=== PATIENT | male | born 1985 | race Caucasian/White ===

== ENCOUNTER → 2017-12-05 14:54 | Outpatient (CLI) | payer BC, SELFPAY ==
[2017-12-09 03:07] LABS: Comment 2b (.); HCV Quant. RNA PCR See Final Results IU/mL (.)
[2017-12-09 11:06] LABS: HCV log 10 7.152 (.); HEPATITIS B SURFACE AG Negative (Negative); Hepatitis C Genotype 2b
== END ==
PROVIDERS: Family Provider Family Medicine; PCP Family Medicine; Visit Provider Internal Medicine Gastroenterology
DX: B19.20 Unspecified viral hepatitis C without hepatic coma (principal)
CPT/HCPCS: 36415; 87340; 87522; 87902

== ENCOUNTER 2017-12-25 04:44 | Emergency (ER) | payer BC, SELFPAY ==
[2017-12-25 04:45] VITALS: BP 173/80; PULSE 111; RESP 22; TEMP 36.8; O2SAT 100; BMI 27.4
--- NOTE | 2017-12-25 05:14 | ED.VISSUMM ---
- ER Visit Summary Date of Service: 12/25/17 Chief Complaint: Laceration left thumb History of Present Illness: The patient is a 32 M presenting with laceration to his left thumb. Patient was cutting wood with a knife and the knife slipped and cut his left thumb. He is right-handed. He rinsed it out at home. His tetanus is up-to-date. No other injuries. Physical Examination: Vitals are stable. Patient is afebrile. Alert no acute distress. HEENT exam is unremarkable. Lungs are clear and equal bilaterally. Heart is regular rate and rhythm. Extremities 3 cm left thumb flap laceration, tendon function is intact, normal cap refill Skin is warm and dry. No focal neurologic deficit. Remainder of exam is unremarkable. Emergency Department Course and Treatment: Laceration was repaired under sterile conditions. Irrigated with saline. Anesthetized with lidocaine. 4, 5-0 simple sutures were placed. Patient tolerated this well. Advised wound care instructions. Advised to return to ED for worsening complaints. Disposition: Discharge home Impression: Left thumb laceration, laceration repair This note was generated with [employer] dictation software. It may contain incorrect words, spelling, and punctuation that were not noted in review of the chart prior to signing ED Disposition - Plan for ED Patient: Chief Complaint: Laceration Instructions: ED Laceration Hand Referrals: Ron Smith MD [Primary Care Provider] -
--- NOTE | 2017-12-25 05:17 | ED.DCSUM_ITS ---
- ER Visit Summary Date of Service: 12/25/17 Chief Complaint: Laceration left thumb History of Present Illness: The patient is a 32 M presenting with laceration to his left thumb. Patient was cutting wood with a knife and the knife slipped and cut his left thumb. He is right-handed. He rinsed it out at home. His tetanus is up-to-date. No other injuries. Physical Examination: Vitals are stable. Patient is afebrile. Alert no acute distress. HEENT exam is unremarkable. Lungs are clear and equal bilaterally. Heart is regular rate and rhythm. Extremities 3 cm left thumb flap laceration, tendon function is intact, normal cap refill Skin is warm and dry. No focal neurologic deficit. Remainder of exam is unremarkable. Emergency Department Course and Treatment: Laceration was repaired under sterile conditions. Irrigated with saline. Anesthetized with lidocaine. 4, 5- 0 simple sutures were placed. Patient tolerated this well. Advised wound care instructions. Advised to return to ED for worsening complaints. Disposition: Discharge home Impression: Left thumb laceration, laceration repair This note was generated with [employer] dictation software. It may contain incorrect words, spelling, and punctuation that were not noted in review of the chart prior to signing ED Disposition - Plan for ED Patient: Chief Complaint: Laceration Instructions: ED Laceration Hand Referrals: Ron Smith MD [Primary Care Provider] -
--- NOTE | 2017-12-25 05:58 | ED.DEP ---
ED Disposition - Plan for ED Patient: Chief Complaint: Laceration Instructions: ED Laceration Hand Referrals: Ron Smith MD [Primary Care Provider] -
[2017-12-25 06:11] VITALS: RESP 18
== END 2017-12-25 06:12 | disposition home or self-care (01) ==
PROVIDERS: Emergency Provider Emergency Medicine; Family Provider Family Medicine; PCP Family Medicine
DX: S61.012A Laceration without foreign body of left thumb without damage to nail, initial encounter (principal); W26.0XXA Contact with knife, initial encounter; Y93.9 Activity, unspecified; Y92.9 Unspecified place or not applicable; K50.90 Crohn's disease, unspecified, without complications; Z72.0 Tobacco use
CPT/HCPCS: 12002; 99284

== ENCOUNTER 2018-03-11 21:19 | Emergency (ER) | payer BC, SELFPAY ==
[2018-03-11 21:20] VITALS: BP 149/91; PULSE 93; RESP 14; TEMP 36.6; O2SAT 99; BMI 27.5
--- NOTE | 2018-03-11 23:00 | ED.VISSUMM ---
- ER Visit Summary Date of Service: 03/11/18 Chief Complaint: [Laceration left ring finger] History of Present Illness: The patient is a 32 M [presents the emergency department with complaint of a laceration to his left ring finger that occurred this evening while he was pruning some bushes. Patient states that he accidentally cut his left ring finger with pruning darian. Patient is right-hand dominant.] Physical Examination: [Left ring finger-there is a flap laceration measuring approximately 1 cm in diameter to the distal tip of the digit. No nail involvement noted. Patient neurovascular intact. Initially patient had a small amount of skin holding the flap in the place but the flap is white and appears devascularized.] Test Results: [None indicated] Emergency Department Course and Treatment: [Patient had a digital block performed using 1% lidocaine total 6 cc. Wound cleansed with Shur-Clens and irrigated with saline. The flap is devascularized and was only hanging out by a fine thread of epidermis therefore the flap was removed. As we were washing the wound he started to bleed and we used Gelfoam to obtain good hemostasis and a clean dressing was applied.] Treatment Plan: [Patient follow-up with his primary care physician within next 3-5 days for wound check] Disposition: [Discharged home in stable condition] Impression: [Skin avulsion distal tip of left ring finger] This note was generated with [employer] dictation software. It may contain incorrect words, spelling, and punctuation that were not noted in review of the chart prior to signing ED Disposition - Plan for ED Patient: Chief Complaint: Laceration Referrals: Ron Smith MD [Primary Care Provider] -
--- NOTE | 2018-03-11 23:03 | ED.DCSUM_ITS ---
- ER Visit Summary Date of Service: 03/11/18 Chief Complaint: [Laceration left ring finger] History of Present Illness: The patient is a 32 M [presents the emergency department with complaint of a laceration to his left ring finger that occurred this evening while he was pruning some bushes. Patient states that he accidentally cut his left ring finger with pruning darian. Patient is right- hand dominant.] Physical Examination: [Left ring finger-there is a flap laceration measuring approximately 1 cm in diameter to the distal tip of the digit. No nail involvement noted. Patient neurovascular intact. Initially patient had a small amount of skin holding the flap in the place but the flap is white and appears devascularized.] Test Results: [None indicated] Emergency Department Course and Treatment: [Patient had a digital block performed using 1% lidocaine total 6 cc. Wound cleansed with Shur-Clens and irrigated with saline. The flap is devascularized and was only hanging out by a fine thread of epidermis therefore the flap was removed. As we were washing the wound he started to bleed and we used Gelfoam to obtain good hemostasis and a clean dressing was applied.] Treatment Plan: [Patient follow-up with his primary care physician within next 3 -5 days for wound check] Disposition: [Discharged home in stable condition] Impression: [Skin avulsion distal tip of left ring finger] This note was generated with [employer] dictation software. It may contain incorrect words, spelling, and punctuation that were not noted in review of the chart prior to signing ED Disposition - Plan for ED Patient: Chief Complaint: Laceration Referrals: Ron Smith MD [Primary Care Provider] -
--- NOTE | 2018-03-11 23:03 | ED.DEP ---
ED Disposition - Plan for ED Patient: Chief Complaint: Laceration Instructions: ED Avulsion Dermal Referrals: Ron Smith MD [Primary Care Provider] - 3-5 Days
[2018-03-11 23:16] VITALS: BP 140/60; PULSE 75; RESP 16; O2SAT 96
== END 2018-03-11 23:17 | disposition home or self-care (01) ==
LOC: ED 21:47
PROVIDERS: Emergency Provider Emergency Medicine; Family Provider Family Medicine; PCP Family Medicine
DX: S61.215A Laceration without foreign body of left ring finger without damage to nail, initial encounter (principal); W26.8XXA Contact with other sharp object(s), not elsewhere classified, initial encounter; Y93.9 Activity, unspecified; Y92.9 Unspecified place or not applicable; K50.90 Crohn's disease, unspecified, without complications; Z86.19 Personal history of other infectious and parasitic diseases; Z72.0 Tobacco use
CPT/HCPCS: 99284

== ENCOUNTER 2018-03-19 12:21 | Emergency (ER) | payer BC, SELFPAY ==
[2018-03-19 12:22] VITALS: BP 138/59; PULSE 79; RESP 18; TEMP 36.4; O2SAT 99; BMI 27.5
--- NOTE | 2018-03-19 12:46 | ED.VISSUMM ---
- ER Visit Summary Date of Service: 03/19/18 Chief Complaint: [] Rectal pain for 1 week history of Crohn's disease stable History of Present Illness: The patient is a 32 M [] of Crohn's disease and recent has been stable he indicates had rectal pain for unspecified reasons for about a week he is using avoid ointments with minimal improvement he is able to have normal bowel movements no blood no nausea vomiting fever no abdominal pain his Crohn's has been stable he sees Dr. Hobbs but he is on no medications as he has been stable Physical Examination: [] His vital signs are within normal limits head neck chest abdomen unremarkable nontender the rectal exam shows no obvious mass or lesion or abnormality he complains of pain right at the anal verge, again there is no fullness there is no bleeding there is no masses here his stool is soft and brown the external rectal area is unremarkable no signs of hemorrhoids his area is unremarkable otherwise In all the above to this patient at this time we did apply lidocaine Via [employer] to the rectum with some relief of his discomfort of explained to him the exact etiology unclear it could be manifestation of the Crohn's he will continue to use the hemorrhoid ointment and a follow-up with his certified substance abuse counselor in the next few days and return for change in symptoms Test Results: [] Emergency Department Course and Treatment: [] Treatment Plan: [] Disposition: [] Home stable Impression: [] Rectal pain history of Crohn's disease This note was generated with [employer] dictation software. It may contain incorrect words, spelling, and punctuation that were not noted in review of the chart prior to signing ED Disposition - Plan for ED Patient: Chief Complaint: Other, Pain/Inj Referrals: Ron Smith MD [Primary Care Provider] -
--- NOTE | 2018-03-19 12:48 | ED.DEP ---
ED Disposition - Plan for ED Patient: Chief Complaint: Other, Pain/Inj Instructions: Diagnosing Hemorrhoids Referrals: Ron Smith MD [Primary Care Provider] -
[2018-03-19 12:50] VITALS: PULSE 82; RESP 16; O2SAT 98
== END 2018-03-19 13:42 | disposition home or self-care (01) ==
LOC: ED 13:12
PROVIDERS: Emergency Provider Emergency Medicine; Family Provider Family Medicine; PCP Family Medicine
DX: K62.89 Other specified diseases of anus and rectum (principal); K50.90 Crohn's disease, unspecified, without complications; Z79.899 Other long term (current) drug therapy
CPT/HCPCS: 99282

== ENCOUNTER → 2018-03-31 17:36 | Outpatient (CLI) | payer BC, SELFPAY | PROVIDERS: Family Provider Family Medicine; PCP Family Medicine; Visit Provider Internal Medicine Gastroenterology | DX: K50.90 Crohn's disease, unspecified, without complications (principal) | CPT/HCPCS: 72193; Q9967 ==

== ENCOUNTER → 2018-07-20 14:29 | Outpatient (CLI) | payer BC, SELFPAY ==
[2018-07-23 03:06] LABS: HCV Quant. RNA PCR HCV Not Detected IU/mL (.)
--- OUTSIDE RECORDS SUMMARY | 2018-10-22 07:04 | XMS RPT_ITS ---
:1985 Author Organization OHIP Care Team Providers Name Role Phone Dallin Aleman Attending Unavailable Tourlas, Dallin Admitting Unavailable Tourlas, Dallin Primary Care Unavailable Tourlas, Dallin Attending Unavailable Tourlas, Dallin Primary Care Unavailable Tourlas, Dallin Admitting Unavailable Tourlas, Dallin Attending Unavailable Tourlas, Dallin Primary Care Unavailable Pallavi, Kandi L Attending Unavailable Tourlas, Dallin Primary Care Unavailable Pallavi, Kandi L Admitting Unavailable Pallavi, Kandi L Attending Unavailable Tourlas, Dallin Primary Care Unavailable Pallavi, Kandi L Admitting Unavailable Pallavi, Kandi L Attending Unavailable Tourlas, Dallin Primary Care Unavailable Pallavi, Kandi L Admitting Unavailable Pallavi, Kandi L Attending Unavailable Tourlas, Dallin Primary Care Unavailable Pallavi, Kandi L Admitting Unavailable Pallavi, Kandi L Attending Unavailable Tourlas, Dallin Primary Care Unavailable Pallavi, Kandi L Admitting Unavailable Pallavi, Kandi L Admitting Unavailable Pallavi, Kandi L Attending Unavailable Tourlas, Dallin Primary Care Unavailable Pallavi, Kandi L Attending Unavailable Tourlas, Dallin Primary Care Unavailable Pallavi, Kandi L Admitting Unavailable Pallavi, Kandi L Admitting Unavailable Pallavi, Kandi L Attending Unavailable Tourlas, Dallin Primary Care Unavailable Pallavi, Kandi L Attending Unavailable Tourlas, Dallin Primary Care Unavailable Jabour, Kennent Attending Unavailable ARCEO, RON O Primary Care Unavailable Jabour, Vincent Referring Unavailable Jabour, Kennent Attending Unavailable ARCEO, RON O Primary Care Unavailable ARCEO, RON O Primary Care Unavailable Whitney Landry Attending Unavailable ARCEO, RON O Primary Care Unavailable Jose Sampson Attending Unavailable ARCEO, RON O Primary Care Unavailable Syeda Villa Attending Unavailable Jabour, Vincent Attending Unavailable ARCEO, RON O Primary Care Unavailable Jabour, Vincent Referring Unavailable Jabour, Vincent Attending Unavailable No Family Physician given Primary Care Unavailable PROBLEMS PROBLEMS DATE TYPE CONDITION / ATTENDING STATUS SOURCE CODE 12/15/2017 Admitting Unknown / Jabour, Vincent Active [facility] Medical diagnosis UNK(Unknown) [facility] Repository PROCEDURES PROCEDURES No Procedure Records FoundRESULTS RESULTS CBC W/ AUTO DIFF Collected: 08/17/2018 Status: F Source: [facility] 5:00 PM [facility] REPOSITORY TYPE CODE TESTS RESULT OUT OF RANGE REFERENCE UNITS LAB 07871010(L 3.6-11.0 E3/mcL OINC) Normal WBC 6.2 LAB 29669819(L 3.90-6.10 E6/mcL OINC) Normal RBC 5.31 LAB 85665592(L 13.5-18.0 G/DL OINC) Normal Hgb 15.6 LAB 23610381(L 42.0-52.0 % OINC) Normal Hct 47.0 LAB 88912904(L 11.5-14.5 % OINC) Normal RDW 12.6 LAB 84329336(L 27.0-31.0 pg OINC) Normal MCH 29.4 LAB 12177084(L 33.0-37.0 G/DL OINC) Normal MCHC 33.3 LAB 06185704(L 78.0-100.0 fL OINC) Normal MCV 88.5 LAB 52477118(L 7.4-11.0 fL OINC) Normal MPV 8.3 LAB 43295032(L 130-400 E3/mcL OINC) Normal Platelet 237 Performed By: #### [id number] #### [facility] [address] [place] [address] AUTO DIFF Collected: 08/17/2018 Status: F Source: [facility] 5:00 [facility] REPOSITORY Order Comment: Order Added by Discern Expert. TYPE CODE TESTS RESULT OUT OF RANGE REFERENCE UNITS LAB 72975511(L 37.0-75.0 % OINC) Normal Neutro Auto 52.1 LAB 42412905(L 20.0-55.0 % OINC) Normal Lymph Auto 39.7 LAB 07556252(L 0.0-10.0 % OINC) Normal Floyd Auto 6.5 LAB 77320811(L 0.0-11.0 % OINC) Normal Eos Auto 1.3 LAB 60182626(L 0.0-2.0 % OINC) Normal Basophil Auto 0.4 LAB 64419127(L 1.4-6.5 E3/mcL OINC) Normal Neutro 3.2 Absolute LAB 76846560(L 1.2-3.4 E3/mcL OINC) Normal Lymph Absolute 2.5 LAB 95555789(L 0.0-0.7 E3/mcL OINC) Normal Floyd Absolute 0.4 LAB 47550900(L 0.0-0.7 E3/mcL OINC) Normal Eos Absolute 0.1 LAB 85312610(L 0.0-0.2 E3/mcL OINC) Normal Basophil 0.0 Absolute Performed By: #### [id number] #### [facility] [address] [place] [address] BMP Collected: 08/17/2018 Status: F Source: [facility] 5:00 [facility] REPOSITORY TYPE CODE TESTS RESULT OUT OF RANGE REFERENCE UNITS LAB 65008347(L 70-99 mg/dL OINC) Low Glucose Lvl 67 LAB 18847322(L 6-23 mg/dL OINC) BUN Normal 10 LAB 8213383(LO 0.5-1.3 mg/dL INC) Normal Creatinine 1.0 LAB 06610920(L 5.4-30.0 ratio OINC) Normal BUN/Creat Ratio 10.0 LAB 10871785(L 8.6-10.3 mg/dL OINC) Calcium Normal Lvl 9.9 LAB 29817958(L 136-145 mEq/L OINC) Sodium Normal Lvl 138 LAB 65194350(L 3.5-5.3 mEq/L OINC) Normal Potassium Lvl 4.3 LAB 16487712(L 98-107 mEq/L OINC) Chloride Normal 103 LAB 22528455(L 21.0-32.0 mEq/L OINC) CO2 Normal 32.0 LAB 17886068(L 10-20 mEq/L OINC) Low AGAP 7 Performed By: #### [id number] #### [facility] [place] [address] EGFR Collected: 08/17/2018 Status: F Source: [facility] 5:00 PM [facility] REPOSITORY Order Comment: Order added by Discern Expert. TYPE CODE TESTS RESULT OUT OF RANGE REFERENCE UNITS LAB 72165660(LO mL/min/1.73 INC) m2 Normal eGFR >60 LAB 65709962(LO mL/min/1.73 INC) m2 Normal eGFR AA >60 Performed By: #### [id number] #### [facility] [address] [place] [address] TSH Collected: 08/17/2018 Status: F Source: [facility] 5:00 PM [facility] REPOSITORY TYPE CODE TESTS RESULT OUT OF RANGE REFERENCE UNITS LAB 79488600(LO 0.30-5.60 mcIU/mL INC) Normal TSH 2.16 Performed By: #### [id number] #### [facility] [employer] [address] [place] [id number] HEPATITIS C,RNA PCR Collected: 07/20/2018 Status: F Source: [facility] VIRAL LOAD 2:37 PM [facility] REPOSITORY TYPE CODE TESTS RESULT OUT OF RANGE REFERENCE UNITS LAB L7000.7100 . IU/mL HCV Normal HCV Not Detected QT PCR LAB L7000.7350 . Test Normal HCV not performed log 10 LAB L7000.7500 . Normal TEST Comment INFO: Result Comment: The quantitative range of this assay is 15 IU/mL to 100 million IU/mL. Performed at: - [facility] [id number] Oil And Gas Specialist: Mariah Orellana MD, Phone: [phone] Performed By: #### L7000.7000 #### [facility] (refer to report for specific site) refer to report for address and phone number XR CHEST 2 VIEWS Observed: 06/02/2018 Status: F Source: [facility] 4:13 PM [facility] REPOSITORY Exam Date/Time: 06/02/2018 16:18 EDT Reason for Exam: Other (please specify) Report STUDY: XR Chest 2 Views; 06/02/2018 4:18 pm INDICATION: Other (please specify). COMPARISON: None. ACCESSION NUMBER(S): [id number] ORDERING CLINICIAN: Kandi Olivo FINDINGS: The lungs are clear without pleural effusion. Normal heart size, mediastinum, shante, and pulmonary vasculature. IMPRESSION: No active disease in the chest. FINAL REPORT Dictated: 06/02/2018 7:08 pm Scout Choudhury MD Signed (Electronic Signature): 06/02/2018 7:08 pm Signed by: Scout Choudhury MD Technologist: [facility] PELVIS WITH IV Observed: 03/31/2018 Status: F Source: [facility] CONTRAST 5:45 PM [facility] REPOSITORY [facility] Imaging Services [address] [place] [address] Pelvis WITH IV Contrast MR#: [id number] Acct: [id number] Name: LENCHO CHOI Rep #: [id number] : 1985 M 32 From: Hemal Haas MD PCP: Ron Arceo MD Status: REG CLI Study: Pelvis WITH IV Contrast Date of Exam: 03/31/18 Exam# [id number] Ordering Dr: Zurdo Hobbs MD STUDY: CT PELVIS WITH CONTRAST REASON FOR EXAM: Male, 32 years old. Crohn's disease flare. 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 Prior bowel resection. RADIATION DOSAGE (If Supplied By Facility): CTDIvol = ( 28.21 ) mGy, DLP = ( 1146.73 ) mGycm TECHNIQUE: Transaxial imaging of the pelvis was performed with oral contrast. 100 ml of Isovue 300 contrast was administered intravenously. Multiplanar coronal and sagittal images were reformatted. Individualized dose optimization techniques were used for this CT. COMPARISON: None. FINDINGS: Normal urinary bladder. Normal visualized small intestine. There is focal low-density wall thickening at the left side of the wall of the distal rectum with consistent with small fistula, series 2 image 61/96. Surgical clips in the right lower quadrant of the abdomen. There is no pelvic fluid. There is no pelvic lymphadenopathy or mass lesion. Normal visualized pelvic arteries. Normal abdominal wall. Normal osseous structures. 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 Electronically Signed: Hemal Haas MD at 0:01 EDT , Service support , CC: Ron Arceo MD; Zurdo Hobbs Diamond Powder Technician: Signed EMERGENCY DEPARTMENT Observed: 03/19/2018 Status: F Source: [facility] SUMMARY 4:32 PM [facility] REPOSITORY [facility] Medical Records Department [address] [place] [address] Emergency Department Summary 03/19/18 1246 MR#: [id number] Acct: [id number] Name: LENCHO CHOI Rep #: [id number] : 1985 32 From: Syeda Villa MD PCP: Ron Arceo MD Status: DEP ER - ER Visit Summary Date of Service: 03/19/18 Chief Complaint: [] Rectal pain for 1 week history of Crohn's disease stable History of Present Illness: The patient is a 32 M [] of Crohn's disease and recent has been stable he indicates had rectal pain for unspecified reasons for about a week he is using avoid ointments with minimal improvement he is able to have normal bowel movements no blood no nausea vomiting fever no abdominal pain his Crohn's has been stable he sees Dr. Hobbs but he is on no medications as he has been stable Physical Examination: [] His vital signs are within normal limits head neck chest abdomen unremarkable nontender the rectal exam shows no obvious mass or lesion or abnormality he complains of pain right at the anal verge, again there is no fullness there is no bleeding there is no masses here his stool is soft and brown the external rectal area is unremarkable no signs of hemorrhoids his area is unremarkable otherwise In all the above to this patient at this time we did apply lidocaine Via Urojet to the rectum with some relief of his discomfort of explained to him the exact etiology unclear it could be manifestation of the Crohn's he will continue to use the hemorrhoid ointment and a follow-up with his fiscal accounting clerk in the next few days and return for change in symptoms Test Results: [] Emergency Department Course and Treatment: [] Treatment Plan: [] Disposition: [] Home stable Impression: [] Rectal pain history of Crohn's disease This note was generated with [employer] software. It may contain incorrect words, spelling, and punctuation that were not noted in review of the chart prior to signing ED Disposition - Plan for ED Patient: Chief Complaint: Other, Pain/Inj Referrals: Ron Arceo MD [Primary Care Provider] - What to do if you have Problems For any increased pain, shortness of breath, bleeding, nausea or vomiting, chest pain, or any unexpected problems, contact your Primary Care Provider. Call [facility] ([phone]) or report to the closest Emergency Room. Call 911 if necessary. 03/19/18 1632 <Electronically signed by Syeda Villa MD> Date Syeda Villa MD Cosigner Signature (If Indicated): Date CC: Ron Arceo MD DISCHARGE INSTRUCTION Observed: 03/19/2018 Status: F Source: [place] 12:49 PM [facility] REPOSITORY [facility] Medical Records Department [address] [place] [address] Discharge Instruction 03/19/18 1248 MR#: [id number] Acct: [id number] Name: LENCHO CHOI Rep #: [id number] : 1985 32 From: Syeda Villa MD PCP: Ron Arceo MD Status: PRE ER ED Disposition - Plan for ED Patient: Chief Complaint: Other, Pain/Inj Instructions: Diagnosing Hemorrhoids Referrals: Ron Arceo MD [Primary Care Provider] - What to do if you have Problems For any increased pain, shortness of breath, bleeding, nausea or vomiting, chest pain, or any unexpected problems, contact your Primary Care Provider. Call [facility] ([phone]) or report to the closest Emergency Room. Call 911 if necessary. 03/19/18 1249 <Electronically signed by Syeda Villa MD> Date Syeda Vazignbridget Signature (If Indicated): Date CC: Ron Arceo MD DISCHARGE INSTRUCTION Observed: 03/11/2018 Status: F Source: [facility] 11:04 PM [facility] Medical Records Department [address] [place] [address] Discharge Instruction 03/11/182302 MR#: [id number] Acct: [id number] Name: LENCHO CHOI R Rep #: [id number] : 1985 From: Jose Sampson DO PCP: Ron Arceo MD Status: REG ER ED Disposition - Plan for ED Patient: Chief Complaint: Laceration Instructions: ED Avulsion Dermal Referrals: Ron Arceo MD [Primary Care Provider] - 3-5 Days What to do if you have Problems For any increased pain, shortness of breath, bleeding, nausea or vomiting, chest pain, or any unexpected problems, contact your Primary Care Provider. Call [facility] ([phone]) or report to the closest Emergency Room. Call 911 if necessary. 03/11/182303 <Electronically signed by oJse Sampson DO> Date Jose Sampson DO Cosigner Signature (If Indicated): Date CC: Ron Arceo MD EMERGENCY DEPARTMENT Observed: 03/11/2018 Status: F Source: [facility] SUMMARY 11:03 PM [facility] Medical Records Department [address] [place] [address] Emergency Department Summary 03/11/182299 MR#: [id number] Acct: [id number] Name: LENCHO CHOI R Rep #: [id number] : 1985 From: Jose Smapson DO PCP: Ron Arceo MD Status: REG ER - ER Visit Summary Date of Service: 03/11/18 Chief Complaint: [Laceration left ring finger] History of Present Illness: The patient is a 32 M [presents the emergency department with complaint of a laceration to his left ring finger that occurred this evening while he was pruning some bushes. Patient states that he accidentally cut his left ring finger with pruning darian. Patient is right-hand dominant.] Physical Examination: [Left ring finger-there is a flap laceration measuring approximately 1 cm in diameter to the distal tip of the digit. No nail involvement noted. Patient neurovascular intact. Initially patient had a small amount of skin holding the flap in the place but the flap is white and appears devascularized.] Test Results: [None indicated] Emergency Department Course and Treatment: [Patient had a digital block performed using 1% lidocaine total 6 cc. Wound cleansed with Shur-Clens and irrigated with saline. The flap is devascularized and was only hanging out by a fine thread of epidermis therefore the flap was removed. As we were washing the wound he started to bleed and we used Gelfoam to obtain good hemostasis and a clean dressing was applied.] Treatment Plan: [Patient follow-up with his primary care physician within next 3-5 days for wound check] Disposition: [Discharged home in stable condition] Impression: [Skin avulsion distal tip of left ring finger] This note was generated with [employer] dictation software. It may contain incorrect words, spelling, and punctuation that were not noted in review of the chart prior to signing ED Disposition - Plan for ED Patient: Chief Complaint: Laceration Referrals: Ron Arceo MD [Primary Care Provider] - What to do if you have Problems For any increased pain, shortness of breath, bleeding, nausea or vomiting, chest pain, or any unexpected problems, contact your Primary Care Provider. Call [facility] ([phone]) or report to the closest Emergency Room. Call 911 if necessary. 03/11/18 5793 <Electronically signed by Jose Sampson DO> Date Jose Rm Signature (If Indicated): Date CC: Ron Arceo MD EMERGENCY DEPARTMENT Observed: 12/25/2017 Status: F Source: [facility] SUMMARY 6:06 AM [facility] REPOSITORY [facility] Medical Records Department [address] [place] [address] Emergency Department Summary 12/25/17 0514 MR#: [id number] Acct: [id number] Name: LENCHO CHOI Rep #: [id number] : 1985 From: Whitney Landry MD PCP: Ron Arceo MD Status: REG ER - ER Visit Summary Date of Service: 12/25/17 Chief Complaint: Laceration left thumb History of Present Illness: The patient is a 32 M presenting with laceration to his left thumb. Patient was cutting wood with a knife and the knife slipped and cut his left thumb. He is right-handed. He rinsed it out at home. His tetanus is up-to-date. No other injuries. Physical Examination: Vitals are stable. Patient is afebrile. Alert no acute distress. HEENT exam is unremarkable. Lungs are clear and equal bilaterally. Heart is regular rate and rhythm. Extremities 3 cm left thumb flap laceration, tendon function is intact, normal cap refill Skin is warm and dry. No focal neurologic deficit. Remainder of exam is unremarkable. Emergency Department Course and Treatment: Laceration was repaired under sterile conditions. Irrigated with saline. Anesthetized with lidocaine. 4, 5- 0 simple sutures were placed. Patient tolerated this well. Advised wound care instructions. Advised to return to ED for worsening complaints. Disposition: Discharge home Impression: Left thumb laceration, laceration repair This note was generated with [employer] dictation software. It may contain incorrect words, spelling, and punctuation that were not noted in review of the chart prior to signing ED Disposition - Plan for ED Patient: Chief Complaint: Laceration Instructions: ED Laceration Hand Referrals: Ron Arceo MD [Primary Care Provider] - What to do if you have Problems For any increased pain, shortness of breath, bleeding, nausea or vomiting, chest pain, or any unexpected problems, contact your Primary Care Provider. Call [facility] ([phone]) or report to the closest Emergency Room. Call 911 if necessary. 12/25/17605 <Electronically signed by Whitney Landry MD> Date Whitney Landry MD Cosigner Signature (If Indicated): Date CC: Ron Arceo MD DISCHARGE INSTRUCTION Observed: 12/25/2017 Status: F Source: [place] 5:59 AM [facility] REPOSITORY [facility] Medical Records Department [address] [place], [place] [address] [place] [address] Discharge Instruction 12/25/1758 MR#: [id number] Acct: [id number] Name: LENCHO CHOI Rep #: [id number] : 1985 32 From: Whitney Landry MD PCP: Ron Arceo MD Status: REG ER ED Disposition - Plan for ED Patient: Chief Complaint: Laceration Instructions: ED Laceration Hand Referrals: Ron Arceo MD [Primary Care Provider] - What to do if you have Problems For any increased pain, shortness of breath, bleeding, nausea or vomiting, chest pain, or any unexpected problems, contact your Primary Care Provider. Call [facility] ([phone]) or report to the closest Emergency Room. Call 911 if necessary. 12/25/1759 <Electronically signed by Whitney Landry MD> Date Whitney Vazigner Signature (If Indicated): Date CC: Ron Arceo MD US LIVER Observed: 12/15/2017 Status: F Source: [facility] 9:11 AM [facility] ELASTOGRAPHY WITH IMAGING, US LIVER Ordering Physician: Zurdo Hobbs 12/15/2017 9:00 AM ULTRASOUND OF THE LIVER AND ELASTOGRAPHY: Clinical Statement: Chronic viral hepatitis C Comparison: None FINDINGS: The liver is nonenlarged. No intrahepatic mass, ductal dilatation or abnormal echogenicity is seen. ARFI median: 1.14 M/sec IQR - 0.13 IQR/median ratio equals 0.11 (must be 0.3 or less to ensure technical adequacy) Optimal cutoffs for ARFI: Greater than or equal to F1 - 1.02 M/sec Greater than or equal to F2 - 1.34 M/sec Greater than or equal to F3 - 1.55 M/sec Greater than or equal to F4 - 1.8 M/sec IMPRESSION: Elastography score F1 ---- Electronic Signature on File ---- Signed By: Kaleb Banuelos MD [email or web address] Dictated: 12/15/2017 9:38 AM Signed: 12/15/2017 9:39 AM Reported By: KALEB BANUELOS M.D. Signed By: KALEB BANUELOS M.D. ELASTOGRAPHY WITH Observed: 12/15/2017 Status: F Source: [facility] IMAGING 9:11 AM [facility] ELASTOGRAPHY WITH IMAGING, US LIVER Ordering Physician: Zurdo Hobbs 12/15/2017 9:00 AM ULTRASOUND OF THE LIVER AND ELASTOGRAPHY: Clinical Statement: Chronic viral hepatitis C Comparison: None FINDINGS: The liver is nonenlarged. No intrahepatic mass, ductal dilatation or abnormal echogenicity is seen. ARFI median: 1.14 M/sec IQR - 0.13 IQR/median ratio equals 0.11 (must be 0.3 or less to ensure technical adequacy) Optimal cutoffs for ARFI: Greater than or equal to F1 - 1.02 M/sec Greater than or equal to F2 - 1.34 M/sec Greater than or equal to F3 - 1.55 M/sec Greater than or equal to F4 - 1.8 M/sec IMPRESSION: Elastography score F1 ---- Electronic Signature on File ---- Signed By: Kaleb Banuelos MD [email or web address] Dictated: 12/15/2017 9:38 AM Signed: 12/15/2017 9:39 AM Reported By: KALEB BANUELOS M.D. Signed By: KALEB BANUELOS M.D. HEPATITIS B SURFACE Collected: 12/05/2017 Status: F Source: [facility] AG 2:58 PM [facility] REPOSITORY TYPE CODE TESTS RESULT OUT OF RANGE REFERENCE UNITS LAB L3100.0400 Negative Normal HB Negative SURF AG Result Comment: Performed at: - [facility] [id number] Oil And Gas Specialist: Raymond Ty MD, Phone: [phone] Performed at: [facility] [id number] Oil And Gas Specialist: Zurdo Palacios PhD, Phone: [phone] Performed By: #### L3100.0390, L7000.7000, L7000.8000 #### [facility] (refer to report for specific site) refer to report for address and phone number HEPATITIS C,RNA PCR Collected: 12/05/2017 Status: F Source: [facility] VIRAL LOAD 2:58 PM [facility] REPOSITORY TYPE CODE TESTS RESULT OUT OF RANGE REFERENCE UNITS LAB L7000.7100 . IU/mL See Normal HCV Final Results QT PCR LAB L7000.7250 . IU/mL Normal HCV [id number] RNA LAB L7000.7350 . Test Normal HCV not performed log 10 LAB L7000.7360 . 7.152 Normal HCV log 10 Result Comment: Result Units: log10 IU/mL LAB L7000.7500 . Normal TEST INFO: Comment Result Comment: The quantitative range of this assay is 15 IU/mL to 100 million IU/mL. Performed By: #### L3100.0390, L7000.7000, L7000.8000 #### [facility] (refer to report for specific site) refer to report for address and phone number HEPATITIS B C GENOTYPE Collected: 12/05/2017 Status: F Source: [facility] 2:58 PM [facility] REPOSITORY TYPE CODE TESTS RESULT OUT OF RANGE REFERENCE UNITS LAB L7000.8100 Normal HEP C GENOTYPE 2b LAB L7000.8200 . Normal COMMENT Comment Result Comment: This test was developed and its performance characteristics determined by [facility]. It has not been cleared or approved by the U.S. Food and Drug Administration. The FDA has determined that such clearance or approval is not necessary. This test is used for clinical purposes. It should not be regarded as investigational or for research. LAB L7000.8310 . Normal COMMENT 2b Performed By: #### L3100.0390, L7000.7000, L7000.8000 #### [facility] (refer to report for specific site) refer to report for address and phone number ALLERGIES ALLERGIES DATE TYPE / CODE NAME / CODE REACTION SEVERITY SOURCE 03/19/2018 Drug No Known Unknown [facility] Allergy/416 Allergies/R70062 Hospital 083748(SNOM 0388(RXNORM) Repository ED CT) Drug/416933 No Known Denominational 003(SNOMED Allergies [facility] CT) System Repository ENCOUNTERS ENCOUNTERS ADMIT/DISCHARGE ACCOUNT NUMBER ADMITTING ENCOUNTER LOCATION SOURCE CLASS 08/25/2018 [id number] [facility] ding:[employer] [facility] rac Repository 08/25/2018/ [id number] Kandi Olivo [address] ding:[employer] System racRoom: Repository Room 1 08/17/2018/ [id number] Kandi Olivo [address] ding: [employer] [facility] Repository 08/17/2018/ [id number] Kandi Olivo [address] ding:[employer] System racRoom: Repository Room 3 08/17/[id number] Repository 07/20/2018 [id number] [facility] ding:LAB.FUT Repository URE 06/02/2018/ [id number] Kandi Olivo [address] ding:[place] [facility] In[facility] System Repository 06/02/[id number] Repository 05/26/2018/ [id number] Kandi Olivo [facility] [address] ding:AshFamP System racRoom: Repository Room 2 04/28/2018/ [id number] Kandi Olivo [facility] [address] ding:Ash[employer]am[employer] System racRoom: Repository Room 1 03/31/2018 [id number] Ambulatory [facility] ding:CT Repository 03/30/2018/ [id number] Kandi Olivo Ambulatory [address] ding:AshFamP System racRoom: Repository Room 3 03/20/2018/ [id number] Kandi Olivo [address] ding:AshFamP System racRoom: Repository Room 1 03/19/2018/ [id number] Emergency [address] ding:ED Repository 03/11/2018/ [id number] Emergency [address] ding:ED Repository 12/25/2017/ [id number] Emergency [address] ding:ED Repository 12/15/[id number] [facility] ([place], [place]) ng: Cato Repository 12/05/2017 [id number] Ambulatory [facility] ding:LAB.FUT Repository URE 10/21/2017/ [id number] [address] ding:AshFamP System rac Repository 09/30/2017/ [id number] Sheliabrynn, [address] ding:AshFamP System racRoom: Repository Room 2 09/18/2017/ [id number] Sheliabrynn, [address] ding:AshFamP System racRoom: Repository Room 2 PAYERS PAYERS ENCOUNTER GUARANTOR PAYER SUBSCRIBER SOURCE 08/25/2018 LENCHO R Primary LENCHO R Anh GOB: [facility] ANTHEMPolicy Number: [id number] System FORCE [address], Effective 0 FORCE Repository [place] Date:2018-08-25 [place] [address]Egf: [id number] [address]Tle: Name:CD:[id number] O (HP)Tel: 330) [address]RTIBFGH, [place] (HP) (WP) [phone]: (WP) [phone] 08/25/2018 LENCHO R Primary LENCHO R Anh GOB: [facility] ANTHEMPolicy Number: [id number] System FORCE [place], Effective 0 FORCE Repository [place] Date:2018-05-26 - [place] [address]Wyc: [id number] [address]Wwo: Name:CD:[id number] O (HP)Tel: 330) [address]ULFFGWH, [place] (HP) (WP) [address]AS: (WP) [phone] 08/17/2018 LENCHO R Primary LENCHO R Anh GOB: Insurance:ANTHEMPolic TAYLORB: [facility] y Number: Effective [id number] System FORCE [address], Date:2018-08-17 FORCE Repository [place] [id number] [address]Ahp: Name:Darren Mirna MORIN [address]Ppq: [id number], [place] (HP)Tel: [phone]: [phone]) (HP) () [phone] () 08/17/2018 LENCHO R Primary LENCHO R Denominational TAYLORDOB: Insurance:1500 TAYLORDOB: [facility] ANTHEMPolicy Number: [id number] System [place] [address], Effective 0 FORCE Repository [place] Date:2018-08-17 [place] [address]Ohz: [id number] [address]Xom: Name::[id number] O ()Tel: ([phone]) [address] [place] [address] () () [address]JV: (wp) [phone] 08/17/2018 LENHCO TAYLORDOB: Primary [facility] [place] Insurance:AnthemPolic [id number] [place] [address] [place], y Number: 0 FORCE Repository [place] [id number]: [id number] COUNTS INCLUDE [facility] [place] [place] Date:Plan Name:[facility] [id number]: () () 07/20/2018 LENCHO R Primary LENCHO R Sigrid [id number] FORCE Insurance:ANTHEMPACMH HospitalDOB: [facility] [place] Number: [id number] Hospital [address]Kzh: 330) [id number] Repository [phone] () Date:6421-06-06TZ [address] [place] [address]TN: 07/20/2018 Secondary NOT GIVENUNK Qulin Insurance:SELF PAY [facility] Number: Effective Repository Date:2018-07-16 06/02/2018 LENCHO R Primary LENCHO R Denominational STEPHDOB: Insurance:ANTHEMPolic [facility] y Number: Effective [id number] [facility] [place], Date:2018-06-02 - 0 FORCE Repository [place] 9548-45-[place] [address]Bbv: Name:Darren MORIN [address]Bws: [id number], [place] (HP)Tel: [phone]: [phone]) (HP) (WP) [phone] (WP) 06/02/2018 LENCHO STEPHDOB: Primary [facility] [place] Insurance:AnthemPolic [id number] Hospitals [address]CE [address], y Number: 0 FORCE Repository [place] [id number]: [id number] [place], [place] Date:Plan Name:[facility] [id number]: () () 05/26/2018 LENCHO R Primary LENCHO R Denominationalmartinez CHOIB: Insurance:[facility]: [facility] ANTHEMPolicy Number: [id number] System [place] [address], Effective 0 FORCE Repository [place] Date:2018-04-28 [place] [address]Wrj: [id number] [address]Tpj: Name:CD:[id number] (HP)Tel: [facility]) PATIENCE [address] [place] [address] [place] (HP) (WP) [phone]: (WP) [phone] 04/28/2018 LENCHO R Primary LENCHO R Anh CHOIB: Insurance:[facility] ANTHEMPolicy Number: [id number] System [place]CE [place], Effective 0 FORCE Repository [place] [phone]: Date:2018-03-30 - [place], [place] [id number] [id number]: (HP)Tel: ([phone]) Name:CD:[id number] O ) [phone] (WP) [address] [place] [address] (HP)Tel: [phone]: (WP) [phone] 03/31/2018 LENCHO R Primary LENCHO R Sigrid [id number] FORCE Insurance:ANTHEMPolic TAYLORDOB: [place] Number: [id number] Hospital [address]Vkh: (205) [id number] Repository [phone] (HP) Date:5976-07-60VW [address] [place] [address] 55654OO: 03/31/2018 Secondary NOT GIVENUNK Sigrid Insurance:SELF PAY [facility] Number: Effective Repository Date:2018-03-24 03/30/2018 LENCHO R Primary LENCHO R Denominational TAYLORDOB: Insurance:[facility]: [facility] ANTHEMPolicy Number: [id number] System [place], Effective 0 FORCE Repository [place] [phone]: Date:2018-03-20 - [place], [place] 9240-31-77Jqwq [id number]: (HP)Tel: ([phone]) Name:CD:[id number] O [phone] (WP) [address] [place] [address] [place] ()Tel: [phone]: (WP) [phone] 03/20/2018 LENCHO R Primary LENCHO R Denominational TAYLORDOB: Insurance:[facility] ANTHEMPolicy Number: [id number] System [place]CE [place], Effective 0 FORCE Repository [place] [phone]: Date:2018-03-20 - [place], [place] [phone] 1584-80-31Plan [id number]: (HP)Tel: 330) Name:CD:[id number] O ) [phone] (WP) [address] [place] [address] ()Tel: [phone]: () [phone] 03/19/2018 Lencho R Primary Lencho R Sigrid [id number] Force Insurance:ANTHEMPolic TaylorDOB: [place] Number: [id number] Hospital [address]Lhg: (330 [id number] Repository [phone] () Date:0218-63-80SS [address] [place] [address]YJ: 03/19/2018 Secondary NOT GIVENUNK Qulin Insurance:SELF PAY [facility] Number: Effective Repository Date:2018-03-19 03/11/2018 Lencho R Primary Lencho R Sigrid [id number] Force Insurance:ANTHEMPolic TaylorDOB[facility] [place] [place] Number: [id number] Hospital [address]Igr: (330) [id number] Repository [phone] () Date:9213-63-09XD [address] [place] [address] 94687CF: 03/11/2018 Secondary NOT GIVENUNK Qulin Insurance:SELF PAY [facility] Number: Effective Repository Date:2018-03-11 12/25/2017 Lencho R Primary Lencho R Qulin [id number] Force Insurance:ANTHEMPolic TaylorDOB: [facility] [place] Number: [id number] Hospital [address]Dpx: [id number] Repository [phone] Date:4225-01-19SA [address] () [id number] [place] [address]MJ: 12/25/2017 Secondary NOT GIVENUNK Sigrid Insurance:SELF PAY [facility] Number: Effective Repository Date:2017-12-25 12/15/2017 LENCHO R Primary LENCHO R TAYLORUNK [facility] [id number] FORCE [facility] [place] [facility] Number: Repository [address]Cjl: (330) [id number] [phone] (HP) Date:9756-57-43UW [address] [place] [address] 268[address]PR: 12/05/2017 Lencho R Primary Lencho R Sigrid [id number] Force Insurance:ANTHEMPolic TaylorDOB: [place] Number: [id number] Hospital [address]Ypl: [id number] Repository [phone] Date:3644-53-08SY [address] (HP) [address] [place] [address] 29355IE: 12/05/2017 Secondary NOT GIVENUNK Sigrid Insurance:SELF PAY [facility] Number: Effective Repository Date:2017-12-04 10/21/2017 LENCHO R Primary LENCHO R Denominational TAYLORDOB: Insurance:1500 TAYLORDOB: [facility] ANTHEMPolicy Number: [id number] System [place]CE [address], Effective 0 FORCE Repository [place] [phone]: Date:2017-09-30 - [place], [place] ) [phone] [id number]: (HP)Tel: ([phone]) Name:CD:[id number] O ) [phone] (WP) [address] [place] [address] [place] ()Tel: [phone]: (WP) [phone] 09/30/2017 LENCHO R Primary LENCHO R Denominationalmartinez CHOIDOB: Insurance:1500 TAYLORDOB: [facility] ANTHEMPolicy Number: [id number] System [place]CE [place], Effective 0 FORCE Repository [place] [phone]: Date:2017-09-29 - [place], [place] ) [phone] [id number]: (HP)Tel: (330) Name:CD:[id number] O [phone] (WP) [address] [place] [address] [place] ()Tel: [phone]: ([phone] 09/18/2017 LENCHO R Primary LENCHO R Denominational [facility] [id number] ANTHEMPolicy Number: [id number] System FORCE [place], [facility] 0 FORCE Repository [place] [phone]: Date:2017-09-18 - [place] [id number] [id number]: ()Tel: (065) Name:CD:[id number] O [phone] (WP) [address]XEMWJQQ, [place] ()Tel: [phone]: [phone]
== END ==
PROVIDERS: Family Provider Family Medicine; PCP Family Medicine; Referring Provider Internal Medicine Gastroenterology; Visit Provider Internal Medicine Gastroenterology
DX: B18.2 Chronic viral hepatitis C (principal)
CPT/HCPCS: 87522

== ENCOUNTER → 2020-02-18 11:45 | Outpatient (CLI) | payer MEDICAID, SELFPAY ==
--- NOTE | 2020-02-18 11:50 | RAD_ITS ---
STUDY: X-RAY - LEFT SHOULDER REASON FOR EXAM: Male, 34 years old. NEW ONSET SHOULDR PAIN WHEN ABDUCTS ARM AND RAISES. PAIN IS AT JOINT AND ON TOP OF HIS SHOULDER. -- ARTIFACT ON FILM IS A LOOP TAG IN THE BACK OF HIS T-SHIRT SORRY, I MISSED IT WHEN TAKING FILMS TECHNIQUE: 4 view(s) of the shoulder. COMPARISON: None. FINDINGS: Normal glenohumeral articulation. Normal acromioclavicular joint. Normal acromion. Normal humeral head and visualized proximal humerus. The soft tissue structures are unremarkable. Normal visualized pulmonary apex. RAD/Shoulder min 2 Views IMPRESSION: Normal x-ray examination of the shoulder. Electronically Signed: Denver Powell, at 14:17 EDT , Service support ,
== END ==
PROVIDERS: PCP Family Medicine; Referring Provider Nurse Practitioner Family; Visit Provider Nurse Practitioner Family
DX: M25.512 Pain in left shoulder (principal)
CPT/HCPCS: 73030

== ENCOUNTER → 2020-03-27 15:27 | Outpatient (CLI) | payer MEDICAID, SELFPAY ==
[2020-03-27 15:40] LABS: Hematocrit 45.6 % (40-54); Hemoglobin 14.9 g/dL (13.0-16.5); Mean Corp Hgb Conc 32.7 g/dL (32-36); Mean Corpuscular Hgb 28.9 pg (27.0-32.0); Mean Corpuscular Volume 88.4 fL (80-94); Mean Platelet Vol. 9.1 fl (6.2-12.0); Platelet Count 273 K/mm3 (150-450); RBC Distribution Width CV 12.4 % (11.6-14.6); RBC Distribution Width SD 40.1 fl (35.1-43.9); Red Blood Count 5.16 M/mm3 (4.6-6.2); White Blood Count 7.2 K/mm3 (4.4-11.0)
[2020-03-27 16:38] LABS: AST(SGOT) 15 U/L (15-37); Alanine Aminotransfer ALT/SGPT 26 U/L (16-61); Albumin, Serum 4.1 g/dL (3.2-5.0); Alkaline Phosphatase 93 U/L (45-117); Anion Gap 5 (5-15); BUN 6 mg/dL (7-18); BUN/Creat Ratio 5.9 RATIO (10-20); Calcium,Total 8.6 mg/dL (8.5-10.1); Chloride 106 mmol/L (98-107); Creatinine, Serum 1.01 mg/dL (0.70-1.30); EST Glomerular Filtration Rate 91 mL/min (>60); Est Glom Filt Rate - Afr Amer 110 mL/min (>60); Glucose 107 mg/dL (74-106); Potassium 3.8 mmol/L (3.5-5.1); Protein, Total 8.1 g/dL (6.4-8.2); Sodium Level 138 mmol/L (136-145); Thyroid Stim Hormone (TSH) 1.15 uIU/mL (0.358-3.74)
== END ==
PROVIDERS: PCP Family Medicine; Referring Provider Nurse Practitioner Family; Visit Provider Nurse Practitioner Family
DX: H53.9 Unspecified visual disturbance (principal); R51 Headache; R19.7 Diarrhea, unspecified
CPT/HCPCS: 36415; 80053; 84443; 85027

== ENCOUNTER 2020-04-12 15:30 | Outpatient (RCR) | payer MEDICAID, SELFPAY ==
--- NOTE | 2020-02-23 16:50 | HP.PTEVAL ---
Patient's Visit Information NEGRA CHOI is a 34 year old M referred to Physical Therapy by BERNABE Velasquez with a diagnosis of L shoulder pain.. Date of Evaluation: 02/23/20 Physical Therapist: Curtis Watts DPT, OCS, CSCS - Visit Plan Frequency: 3x /Week Duration: 2-4 Weeks Plan: 3x/week for 2-4 weeks for ... 1. Activitiy modification to rest L shoulder, posture. 2. Stretch pecs, grade 1-2 g-h mobs for pain. 3. Strengthen RC and postural muscle and progress to HEP for home adn gym. 4. ES and ice as needed(pt has TENS at home and will bring for insturct if needed. - Subjective L shoulder pain driving me nuts. Been ging on intermittently for a while. Last month and a half has been no fun. was working on shed in backyard building it from scratch. Pain is top of L shoulder and not bad at rest but lifting adn extensing makes it worse to 6/10. comfortable at rest. Night time is hard and it keeps him from getting to sleep, tries to sleep on back. Not employed right now. Spends day going crazy, home projects. 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 Had x rays and was normal. Activities are normal outside of working out as he cannot do that due to shoulder. Watches a lot of movies. Working on shed is painful. Basic ADLs are normal. Washing back can hurt. - Pain L shoulder pain Pain Intensity (Out of 10): 1 Pain Intensity Range: 0, 7 - Objective Forward head adn scap posture is apparent. Tenderness to palpation at supraspinatus insertion is moderate. cervical AROM and elbow and wrist B WNL and without pain. R shoulder aROM full and painfree. L shoulder AROM flexion 16- but pain at 130, abduction 160but pain at 120, ext rotation 45 with pain vs 65 R, IR L5 without pain. reflexes 2/3 bi and tri. sensation UE WNL to gross light touch. Strength is 4- in flexion , abd, ext rotation all with pain, IR 4+ no pain, biceps 4+ no pain. + HK and neer impingement tests, - ext rotation lag test, - labral tests, - drop arm, - apprehension. - Goals Goal 1:: ST: Full aROM L UE without pain Goal Time Frame: 2-4 Weeks Goal 2:: Sleep without waking due to pain Goal Time Frame: 2-4 Weeks Goal 3:: LT : Patient feel back to normal at 99% better and painfree reaching. Goal Time Frame: 4-6 Weeks Goal 4:: QUICKDASH<15 Goal Time Frame: 4-6 Weeks - Rehabilitation Potential Physical Therapy Diagnosis: Likely L supaspinatus impingement tendonitis Rehabilitation Potential: Good - Anticipated Interventions Patient/Client Instruction: Educate patient on: Condition, Plan of Care For the Purpose of:: To decrease pain, To increase ROM, To improve muscle performance and motor function, To increase tolerance to activity/condition/position, To improve ability of physical actions for home/community/work/leisure Therapeutic Exercise to Include: Strength training, Flexibilty training, Neuromotor development, Passive ROM, Active ROM, Scapular Strength/Stabilization For the Purpose of:: To decrease pain, To increase ROM, To improve muscle performance and motor function, To increase tolerance to activity/condition/position, To improve ability of physical actions for home/community/work/leisure Manual Therapy Techniques to Include: Mobilization For the Purpose of:: To decrease pain, To increase ROM TENS: Yes Cryotherapy (ice pack, ice massage): Yes For the Purpose of:: To decrease pain Thank you for the opportunity to evaluate your patient. For Medicare and Medicare HMO plans, please review the plan of care and approve it. It will need to be FAXED BACK to us at [phone] for Medicare purposes. For Medicare only, by signing this I certify the plan of care. Please let me know if there are questions or concerns regarding this plan of care. Physician Signature: Date:
--- NOTE | 2020-04-12 15:51 | HP.PTDCSUM ---
It has been my pleasure to treat NEGRA CHOI referred by BERNABE Velasquez, with the diagnosis of L shoulder pain. for a total of 10 visit(s). Discharge Date: 04/12/20 Please see the following information for a summary of their discharge status. Subjective: Doing pretty good. Some pain poasteriorly with abduction but otherwise has been good. Comfortable at rest. Activities are pretty nromal outside of getting underneath car. Changing belt in car lying on back and reaching out to side was painful. Doing HEP daily and some strengthening now and then. also corner stretch. L shoulder pain Pain Intensity (Out of 10): 0 % Improvement: 75 Objective/Function: Full aROM L shoulder, some pain transiently end range of flexion and external rotation. Strength is 4+/5 without pain in shoulder flex and abd, and ext rotation adn IR. slight discomfort ext rotation. Goal 1:: ST: Full aROM L UE without pain Goal Progress: Full ROM, ERP Goal 2:: Sleep without waking due to pain Goal Progress: Goal Met Goal 3:: LT : Patient feel back to normal at 99% better and painfree reaching. Goal Progress: Progressing Goal 4:: QUICKDASH<15 Goal Progress: Progressing Plan: d/c Discharge Comments[facility]u doctor as scheduled. Doing very well and will continue to progress if compliant with HEP. If there are questions or concerns regarding this patient's physical therapy, please feel free to call me at [phone]. Thank you for the referral of this patient. Sincerely, Curtis Watts, DPT, OCS, CSCS
== END 2020-04-12 19:00 | disposition home or self-care (01) ==
LOC: PT 15:30
PROVIDERS: PCP Family Medicine; Referring Provider Nurse Practitioner Family; Visit Provider Nurse Practitioner Family
DX: M25.512 Pain in left shoulder (principal)
CPT/HCPCS: 97110; 97140; 97161; 97164

== ENCOUNTER 2020-11-15 18:57 | Emergency (ER) | payer MEDICAID, SELFPAY ==
[2020-11-15 18:58] VITALS: BP 135/76; PULSE 87; RESP 15; TEMP 36.8; O2SAT 96; BMI 28.5
--- NOTE | 2020-11-15 19:10 | ED.DCSUM_ITS ---
History of Present Illness Chief Complaint: Abd Pain Informant: Patient Narrative: 34-year-old male with past medical history of Crohn's disease presents with upper epigastric pain. States been worsening over the past few weeks. States it is worse when he lies down at night. States it is like a burning pain. Not worsened or relieved by eating. Denies any chest pain or shortness of breath. Admits to nausea without vomiting. States he has had diarrhea without melena or hematochezia. States he does have a appointment soon with his environmental health nurse Dr. Hobbs. Currently is on no medication for his Crohn's. States is been well controlled for a number of years. Past Medical History - Allergies and Home Meds Allergies/Adverse Reactions: Allergies No Known Allergies Allergy (Verified 11/15/20 18:58) Primary Care Physician: Ron Smith MD [NON-STAFF] - Prior records reviewed: Yes Past Medical History: - - Crohns Surgical History: - - Partial colectomy Lives: Alone Smoking Status: Current every day smoker Alcohol: None Drugs: None Review of Systems General: Denies: Chills, Fever, Sweats Eyes: Denies: Visual changes - bilaterally, Diplopia ENT: Denies: Rhinorrhea, Sore throat Cardiovascular: Denies: Chest pain, Palpitations Respiratory: Denies: Dyspnea, Cough, Dyspnea on exertion Gastrointestinal: Reports: Abdominal pain, Nausea, Diarrhea. Denies: Vomiting, Melena, Hematochezia Genitourinary: Denies: Dysuria, Hematuria, Frequency Musculoskeletal: Denies: Back pain, Extremity Pain Skin: Denies: Rash, Wounds Neurological: Denies: Headache, Weakness, Numbness Physical Exam Vital Signs/Narrative: Vital Signs Temp Pulse Resp BP Pulse Ox 11/15/20 18:58 98.3 F 87 15 135/76 H 96 Inital Vital Signs reviewed: Yes General: Well nourished, Well developed, No Acute Distress Head: Normocephalic, Atraumatic Eyes: Perrl, EOMI ENT: Moist mucous membranes, No rhinorrhea Neck: Supple, Nontender Cardiovascular: Regular rate, Regular rhythm, No murmurs Respiratory: No distress, CTA bilaterally, Chest nontender Abdomen: Soft, Nondistended, Normal bowel sounds, - - TTP in the LUQ and mid upper epigastrum. Back: Nontender, Normal Inspection Extremities: Nontender, No edema Skin: Normal color, No rash Neurological: Alert, Oriented x3, Cranial nerves II-XII grossly intact, Normal Strength, Normal Sensation Psychological: Normal affect, Normal Mood Diagnostic/Tx/Re-eval Laboratory Data 11/15/20 11/15/20 11/15/20 19:20 19:20 19:30 WBC 8.1 RBC 5.43 Hgb 15.6 Hct 48.9 MCV 90.1 MCH 28.7 MCHC 31.9 L RDW Std Deviation 41.2 RDW Coeff of Mckay 12.5 Plt Count 299 MPV 9.4 Immature Gran % (Auto) 0.400 Neut % (Auto) 65.8 Lymph % (Auto) 26.8 [place] % (Auto) 5.3 Eos % (Auto) 1.2 Baso % (Auto) 0.5 Absolute Neuts (auto) 5.3 Absolute Lymphs (auto) 2.16 Nucleated RBC % 0 Sodium 138 Potassium 4.7 Chloride 106 Carbon Dioxide 30.0 Anion Gap 2 L BUN 9 Creatinine 1.13 Estim Creat Clear Calc 103.01 Est GFR (MDRD) Af Amer 96 Est GFR (MDRD) Non-Af 80 BUN/Creatinine Ratio 8.0 L Glucose 112 H Calcium 9.3 Total Bilirubin 0.50 AST 23 ALT 22 Alkaline Phosphatase 87 Total Protein 8.6 H Albumin 4.2 Globulin 4.4 H Albumin/Globulin Ratio 1.0 Lipase 53 L Urine Color Yellow Urine Clarity Clear Urine pH 7.0 Ur Specific [place] 1.010 Urine Protein Negative Urine Glucose (UA) Normal Urine Ketones Negative Urine Occult Blood Negative Urine Nitrite Negative Urine Bilirubin Negative Urine Urobilinogen Normal Ur Leukocyte Esterase Negative Urine RBC 0 SEEN Urine WBC 0 SEEN Ur Squamous Epith Cells 0 SEEN Urine Bacteria 0 SEEN Urine Mucus 1+ - Medical Decision Making Patient appears well and nontoxic. Mild tenderness to palpation in the upper epigastrium as well as left upper quadrant. No rebound or guarding. Lab work within normal limits. Likely gastritis versus peptic ulcer did patient will be started on omeprazole and Carafate. Will be advised to keep his appointment with his environmental health nurse. Asked to return for new or worsening symptoms. Patient agreeable and stable time of discharge. Impression: 1. Upper epigastric pain ED Disposition - Plan for ED Patient: Disposition: Home or Assisted Living Instructions: ED PEPTIC ULCER vs GASTRITIS Prescriptions: Sucralfate [Carafate] 1 gm PO 4X/DAY #56 tab Prescription Printed Omeprazole 40 mg PO DAILY #30 capsule.dr Prescription Printed Referrals: Ron Smith MD [NON-STAFF] - 2 Days Zurdo Hobbs MD [NON-STAFF] - Keep Shaista appointment
[2020-11-15] MEDS: Ondansetron 4 MG/2 ML Vial IV (19:28)
[2020-11-15] MEDS: Mag Hydrox/Al Hydrox/Simeth 30 ML UDC PO (19:28)
[2020-11-15] MEDS: 0.9% Normal Saline 1,000 ML 1000 ML IV (19:28)
[2020-11-15 19:32] LABS: Absolute Lymphocyte Count 2.16 X10^3/uL (0.83-4.51); Absolute Neutrophil Count 5.3 X10^3/uL (2.0-7.7); Basophil# 0.04 X10^3/uL; Basophil% 0.5 % (0-1); Eosinophils% 1.2 % (0-5); Hematocrit 48.9 % (40-54); Hemoglobin 15.6 g/dL (13.0-16.5); Lymphocyte # 2.16 X10^3/ul (0.83-4.51); Lymphocyte % 26.8 % (19-41); Mean Corp Hgb Conc 31.9 g/dL (32-36); Mean Corpuscular Hgb 28.7 pg (27.0-32.0); Mean Corpuscular Volume 90.1 fL (80-94); Mean Platelet Vol. 9.4 fl (6.2-12.0); Monocyte# 0.43 X10^3/uL; Monocyte% 5.3 % (0-10); NRBC Flagged by Analyzer 0 % (0-5); Neutrophil # 5.31 X10^3/uL (2.7-7.7); Neutrophil % 65.8 % (47-70); Platelet Count 299 K/mm3 (150-450); RBC Distribution Width CV 12.5 % (11.6-14.6); RBC Distribution Width SD 41.2 fl (35.1-43.9); Red Blood Count 5.43 M/mm3 (4.6-6.2); White Blood Count 8.1 K/mm3 (4.4-11.0)
[2020-11-15 19:36] LABS: Bacteria 0 SEEN /hpf (None Seen); Red Blood Cells-Urine 0 SEEN /hpf (0-5); Squamous Epithelial Cells - UA 0 SEEN /hpf (0-5); White Blood Cells 0 SEEN /hpf (0-5)
[2020-11-15 19:37] LABS: Color, Urine Yellow (Yellow); Glucose, Dipstick Normal (Normal); Ketone-Dipstick Negative (Negative); Leukocyte Esterase-Dipstick Negative /ul (Negative); Nitrite-Dipstick Negative (Negative); Occult Blood-Urine Negative /ul (Negative); Protein-Dipstick Negative (Negative); Urine Bilirubin Dipstick Negative (Negative); Urine Clarity Clear (Clear); Urine Urobilinogen Normal (Normal)
[2020-11-15 19:44] LABS: Mucous, Urine 1+ /hpf (<or=2+)
[2020-11-15 19:49] LABS: AST(SGOT) 23 U/L (15-37); Alanine Aminotransfer ALT/SGPT 22 U/L (16-61); Albumin, Serum 4.2 g/dL (3.2-5.0); Alkaline Phosphatase 87 U/L (45-117); Anion Gap 2 (5-15); BUN 9 mg/dL (7-18); Calcium,Total 9.3 mg/dL (8.5-10.1); Chloride 106 mmol/L (98-107); Creatinine, Serum 1.13 mg/dL (0.70-1.30); EST Glomerular Filtration Rate 80 mL/min (>60); Est Glom Filt Rate - Afr Amer 96 mL/min (>60); Estimated Creatinine Clearance 103.01 ml/min; Globulin 4.4 g/dL (2.2-4.2); Glucose 112 mg/dL (74-106); Lipase 53 U/L (73-393); Potassium 4.7 mmol/L (3.5-5.1); Protein, Total 8.6 g/dL (6.4-8.2); Sodium Level 138 mmol/L (136-145)
[2020-11-15 20:43] VITALS: BP 115/77; PULSE 62; RESP 15; O2SAT 98
== END 2020-11-15 20:44 | disposition home or self-care (01) ==
PROVIDERS: Emergency Provider Emergency Medicine; PCP Nurse Practitioner Family
DX: R10.13 Epigastric pain (principal); K50.90 Crohn's disease, unspecified, without complications; Z90.49 Acquired absence of other specified parts of digestive tract; F17.200 Nicotine dependence, unspecified, uncomplicated
CPT/HCPCS: 80053; 81001; 83690; 85025; 96361; 96374; 99284; J7030; J2405

== ENCOUNTER → 2021-01-03 12:31 | Outpatient (CLI) | payer MEDICAID, SELFPAY | PROVIDERS: PCP Family Medicine; Referring Provider Internal Medicine Gastroenterology; Visit Provider Internal Medicine Gastroenterology | DX: Z11.59 Encounter for screening for other viral diseases (principal) | CPT/HCPCS: 87635; C9803; U0005; U0003 ==

== ENCOUNTER → 2025-06-07 | Outpatient (CLI) | payer MEDICAID, SELFPAY ==
[2025-06-07 11:11] LABS: Hematocrit 44.3 % (40-54); Hemoglobin 15.1 g/dL (13.0-16.5); Immature Granulocytes Count 0.030 X10^3/uL (0.0-0.0); Mean Corp Hgb Conc 34.1 g/dL (32-36); Mean Corpuscular Volume 86.7 fL (80-94); Mean Platelet Vol. 9.9 fl (6.2-12.0); NRBC Flagged by Analyzer 0 % (0-5); Platelet Count 278 K/mm3 (150-450); RBC Distribution Width CV 12.5 % (11.6-14.6); RBC Distribution Width SD 40.0 fl (35.1-43.9); Red Blood Count 5.11 M/mm3 (4.6-6.2); White Blood Count 8.0 K/mm3 (4.4-11.0)
[2025-06-07 12:01] LABS: AST(SGOT) 17 U/L (<=37); Alanine Aminotransfer ALT/SGPT 12 U/L (<=46); Albumin, Serum 4.7 g/dL (3.5-5.0); Alkaline Phosphatase 79 U/L (40-129); Anion Gap 12 (5-15); BUN 11 mg/dL (4-19); BUN/Creat Ratio 11.8 RATIO (10-20); Calcium,Total 9.8 mg/dL (7.6-11.0); Carbon Dioxide 24.5 mmol/L (21.0-32.0); Chloride 103 mmol/L (98-108); Globulin 3.1 g/dL (2.2-4.2); Glucose 89 mg/dL (70-99); Potassium 4.5 mmol/L (3.3-5.1)
== END | disposition home or self-care (01) ==
LOC: LAB 09:54
DX: R63.4 Abnormal weight loss (principal)
CPT/HCPCS: 36415; 80053; 85025